=== PATIENT | female | born 1945 | race Caucasian/White ===

== ENCOUNTER 2020-09-30 13:29 | Inpatient (IN) | payer MEDICARE ==
[~2020-09-30] VITALS: Ht 160 cm; Wt 56.7 kg
[2020-09-30] MEDS ORDERED: PREDNISONE20 MG PO (20:06)
[2020-09-30] MEDS ORDERED: TREXALL10 MG PO (20:06)
[2020-09-30] MEDS ORDERED: MULTI-VITAMIN1 EAC1 PO (20:07)
[2020-09-30] MEDS ORDERED: SPIRIVA18 MCG INH (20:08)
[2020-09-30] MEDS ORDERED: CARVEDILOL6.25 MG PO (20:09)
[2020-09-30] MEDS ORDERED: FUROSEMIDE20 MG PO (20:09)
[2020-09-30] MEDS ORDERED: PROAIR DIGIHAL90 MCG INH (20:11)
[2020-09-30] MEDS ORDERED: IPRAT-ALBUT 0.5-3 ML INH (20:12)
[2020-09-30] MEDS ORDERED: SINGULAIR10 MG PO (20:12)
[2020-09-30] MEDS ORDERED: ADVAIR 250-501 EACH INH (20:12)
[2020-09-30] MEDS ORDERED: ANORO ELLIPTA1 EACH INH (20:13)
[2020-09-30] MEDS ORDERED: CELEXA20 MG PO (20:13)
[2020-09-30] MEDS ORDERED: MIRALAX17 GM PO (20:14)
[2020-09-30 21:29] LABS: RED BLOOD COUNT 2.01 M/UL (4.00-5.10); WHITE BLOOD COUNT 5.1 K/UL (4.5-11.0)
[2020-09-30 21:42] LABS: HEMOGLOBIN 6.2 gm/dl (12.3-15.3)
[2020-09-30 21:48] LABS: BUN/CREATININE RATIO 37 (0-10)
[2020-10-01 13:01] LABS: BUN/CREATININE RATIO 37 (0-10)
[2020-10-02 02:21] LABS: HEMOGLOBIN 7.6 gm/dl (12.3-15.3)
[2020-10-02 02:32] LABS: RED BLOOD COUNT 2.47 M/UL (4.00-5.10); WHITE BLOOD COUNT 3.7 K/UL (4.5-11.0)
[2020-10-02 02:52] LABS: BUN/CREATININE RATIO 39 (0-10)
[2020-10-02] MEDS ORDERED: VITAMIN C500 M4 PO (09:30)
[2020-10-02] MEDS ORDERED: FOLIC ACID 1 MG1 MG PO (09:58)
[2020-10-03 03:03] LABS: HEMOGLOBIN 7.5 gm/dl (12.3-15.3); RED BLOOD COUNT 2.42 M/UL (4.00-5.10); WHITE BLOOD COUNT 3.8 K/UL (4.5-11.0)
[2020-10-03 03:14] LABS: BUN/CREATININE RATIO 36 (0-10)
[2020-10-04 03:17] LABS: BUN/CREATININE RATIO 44 (0-10)
[2020-10-04] MEDS ORDERED: FUROSEMIDE20 MG PO (10:13)
== END 2020-10-04 16:43 | DRG 562 ==
LOC: PROG CARE 19:19 → MED SURG 4 10-04 06:02
PROVIDERS: Internal Medicine; Internal Medicine Pulmonary Disease; ADMIT Family Medicine
PROC: 0PSJXZZ Reposition Left Radius, External Approach (ICD-10-PCS; principal; 2020-10-01)
DX: S52.512A Displaced fracture of left radial styloid process, initial encounter for closed fracture (principal); J96.21 Acute and chronic respiratory failure with hypoxia; J81.0 Acute pulmonary edema; J96.22 Acute and chronic respiratory failure with hypercapnia; I50.31 Acute diastolic (congestive) heart failure; J44.1 Chronic obstructive pulmonary disease with (acute) exacerbation; M48.56XA Collapsed vertebra, not elsewhere classified, lumbar region, initial encounter for fracture; D61.818 Other pancytopenia; D59.10 Autoimmune hemolytic anemia, unspecified; W18.30XA Fall on same level, unspecified, initial encounter; E87.6 Hypokalemia; Z20.822 Contact with and (suspected) exposure to COVID-19; M06.9 Rheumatoid arthritis, unspecified; R73.9 Hyperglycemia, unspecified; D53.9 Nutritional anemia, unspecified; I11.0 Hypertensive heart disease with heart failure; Z99.81 Dependence on supplemental oxygen; Z87.891 Personal history of nicotine dependence; Y92.009 Unspecified place in unspecified non-institutional (private) residence as the place of occurrence of the external cause; Z82.3 Family history of stroke; Z79.899 Other long term (current) drug therapy; Z79.52 Long term (current) use of systemic steroids
CPT/HCPCS: ECHO; 36415; 36430; 36600; 71045; 71275; 72100; 73100; 80048; 80053; 82803; 83036; 83735; 83880; 84100; 85014; 85018; 85025; 86140; 86850; 86900; 86901; 86920; 93306; 94640; 94664; 94760; 97110-GP-CQ; 97162; 97166; 97530-GP-CQ; 97535; J1650; J1940; J8610; P9016; Q9967